=== PATIENT | female | born 1960 | race African-American/Black ===

== ENCOUNTER 2016-08-17 02:01 | Emergency (ER) | payer MEDICARE ==
[2016-08-17 02:11] VITALS: BP 133/72; PULSE 85; RESP 16; TEMP 98.4
[2016-08-17] MEDS ORDERED: PENICILLIN VK 500MG STARTER 4 TAB BTL PO STA (02:20)
--- NOTE | 2016-08-17 02:21 | ED ---
General Adult HPI - General Chief complaint: Dental/Oral Stated complaint: Jaw Pain Time Seen by Provider: 08/17/16 02:12 Source: patient, RN notes reviewed Mode of arrival: ambulatory Limitations: no limitations - History of Present Illness Initial comments: Patient a 56-year-old female who presents emergency room today with chief complaint of increased dental pain. She does admit to pain over the last tooth #30. She states that she's had this problem on and off over the last year. States last time that she was on antibiotics approximately a year ago. States been trying follow-up with the dentist is currently waiting for insurance to kick in which she believes she'll be able to get into a dentist next week. Patient denies any drainage or discharge or funny taste but does admit some swelling to the right side of the lower jaw. Denies any other complaints. Patient denies any recent fever, chills, shortness of breath, chest pain, back pain, abdominal pain, nausea or vomiting, numbness or tingling, dysuria or hematuria, constipation or diarrhea, headaches or visual changes, or any other complaints. - Related Data Home Medications Medication Instructions Recorded Confirmed HYDROcodone/APAP 10-325MG [[place] 1 tab PO Q4HR PRN 12/09/15 08/17/16 10-325] Previous Rx's Medication Instructions Recorded Penicillin V Potassium [Pen Vee K] 500 mg PO QID 10 Days 08/17/16 Allergies Allergy/AdvReac Type Severity Reaction Status Date / Time moxifloxacin HCl Allergy Anaphylaxis Verified 12/09/15 03:58 [From Avelox] Review of Systems ROS Statement: Those systems with pertinent positive or pertinent negative responses have been documented in the HPI. ROS Other: All systems not noted in ROS Statement are negative. Past Medical History Additional Past Medical History / Comment(s): CHRONIC BACK, ARITHRITIS KNEES History of Any Multi-Drug Resistant Organisms: None Reported Past Surgical History: Hysterectomy, Orthopedic Surgery Additional Past Surgical History / Comment(s): CYST, RIGHT KNEE, RIGHT SHOULDER , LEFT FOOT Past Psychological History: No Psychological Hx Reported Smoking Status: Current every day smoker Past Alcohol Use History: None Reported Past Drug Use History: None Reported General Exam - General Exam Comments Initial Comments: General: The patient is awake and alert, in no distress, and does not appear acutely ill. Eye: Pupils are equal, round and reactive to light, extra-ocular movements are intact. No nystagmus. There is normal conjunctiva bilaterally. No signs of icterus. Ears, nose, mouth and throat: There are moist mucous membranes and no oral lesions. Patient tender to palpation over the gumline of tooth #30 and 29. No obvious abscess for drainage. Uvula midline. Patient swallows without difficulty. Neck: The neck is supple, there is no tenderness or JVD. Cardiovascular: There is a regular rate and rhythm. No murmur, rub or gallop is appreciated. Respiratory: Lungs are clear to auscultation, respirations are non-labored, breath sounds are equal. No wheezes, stridor, rales, or rhonchi. Musculoskeletal: Normal ROM, no tenderness. Strength 5/5. Sensation intact. Pulses equal bilaterally 2+. Neurological: A&O x 3. CN II-XII intact, There are no obvious motor or sensory deficits. Coordination appears grossly intact. Speech is normal. Skin: Skin is warm and dry and no rashes or lesions are noted. Psychiatric: Cooperative, appropriate mood & affect, normal judgment. Limitations: no limitations Course Vital Signs 08/17/16 02:07 Temperature 98.4 F Pulse Rate 85 Respiratory 16 Rate Blood Pressure 133/72 O2 Sat by Pulse 96 Oximetry Medical Decision Making - Medical Decision Making Patient will be started on antibiotics penicillin cover for dental abscess. Advised follow-up with dentist in the next week. Advised return to emergency room if any symptoms increase or worsen or for any other concerns. Disposition Clinical Impression: Dental abscess Disposition: HOME SELF-CARE Condition: Good Instructions: Dental Abscess (ED) Additional Instructions: Please use antibiotic as prescribed and follow-up the dentist over the next week as discussed. Please return to emergency room if any symptoms increase or worsen or for any other concerns. Prescriptions: Penicillin V Potassium [Pen Vee K] 500 mg PO QID 10 Days Time of Disposition: 02:20
== END 2016-08-17 02:27 | disposition home or self-care (01) ==
LOC: EC 02:01
DX: K04.7 Periapical abscess without sinus (principal); Z88.1 Allergy status to other antibiotic agents; F17.200 Nicotine dependence, unspecified, uncomplicated
CPT/HCPCS: 99283

== ENCOUNTER 2019-07-16 00:10 | Emergency (ER) | payer MEDICARE ==
[2019-07-16 00:25] VITALS: RESP 18; TEMP 98.6
[2019-07-16] MEDS ORDERED: LIDOCAINE 1% INJ 10MG/ML (20 ML MDV) SQ ONE (02:09)
[2019-07-16] MEDS ORDERED: TOPICAL SKIN ADHESIVE 1 EACH AMP TOPICAL ONE (02:51)
[2019-07-16] MEDS ORDERED: GELATIN SPONGE,ABSORB (SMALL) 1 EACH SPONGE TOPICAL STA (03:00)
--- NOTE | 2019-07-16 03:20 | ED ---
Wound/Laceration HPI - General Chief Complaint: Wound/Laceration Stated Complaint: finger lac Time Seen by Provider: 07/16/19 01:54 Source: patient Mode of arrival: ambulatory Limitations: no limitations - History of Present Illness Initial Comments: 59-year-old female patient presents to the emergency department today for evaluation of laceration to the left middle finger. Patient states that she was cutting meat with a slicer when she accidentally cut her finger. States she immediately cleaned the area and apply bandages. This was around 12:00pm. Patient is unsure when her last tetanus vaccine was administered. She does not take any blood thinning medications. Denies any other injuries or concerns. Patient denies any headache, neck pain, back pain, chest pain, shortness of breath, dizziness, weakness, abdominal pain, nausea, vomiting, or difficulties with bowel movements or urination. - Related Data Home Medications Medication Instructions Recorded Confirmed HYDROcodone/APAP 10-325MG [[place] 1 tab PO Q4HR PRN 12/09/15 08/17/16 10-325] Previous Rx's Medication Instructions Recorded Penicillin V Potassium [Pen Vee K] 500 mg PO QID 10 Days day 08/17/16 Allergies Allergy/AdvReac Type Severity Reaction Status Date / Time moxifloxacin HCl Allergy Anaphylaxis Verified 07/16/19 00:25 [From Avelox] Review of Systems ROS Statement: Those systems with pertinent positive or pertinent negative responses have been documented in the HPI. ROS Other: All systems not noted in ROS Statement are negative. Past Medical History Past Medical History: Rheumatoid Arthritis (RA) Additional Past Medical History / Comment(s): CHRONIC BACK, ARITHRITIS KNEES History of Any Multi-Drug Resistant Organisms: None Reported Past Surgical History: Hysterectomy, Orthopedic Surgery Additional Past Surgical History / Comment(s): CYST, RIGHT KNEE, RIGHT SHOULDER, LEFT FOOT Past Psychological History: No Psychological Hx Reported Smoking Status: Current every day smoker Past Alcohol Use History: None Reported Past Drug Use History: None Reported General Exam Limitations: no limitations General appearance: alert, in no apparent distress, other (This is a well- developed, well-nourished adult female patient in no acute distress. Vital signs upon presentation are temperature 98.6F, pulse 77, respirations 18, blood pressure 138/85, pulse ox 99% on room air.) Respiratory exam: Present: normal lung sounds bilaterally. Absent: respiratory distress, wheezes, rales, rhonchi, stridor Cardiovascular Exam: Present: regular rate, normal rhythm, normal heart sounds. Absent: systolic murmur, diastolic murmur, rubs, gallop, clicks Extremities exam: Present: full ROM, normal capillary refill, other (There is a 1 cm x 2 cm skin avulsion noted to the palmar aspect of the left middle finger. Skin is otherwise pink, warm, dry. Cap refills less than 3 seconds. Radial pulses 2+ and equal bilaterally.). Absent: normal inspection, tenderness, pedal edema, joint swelling, calf tenderness Neurological exam: Present: alert, oriented X3, CN II-XII intact Psychiatric exam: Present: normal affect, normal mood Skin exam: Present: warm, dry, intact, normal color. Absent: rash Course Vital Signs 07/16/19 07/16/19 00:22 03:35 Temperature 98.6 F 98.6 F Pulse Rate 77 78 Respiratory 18 18 Rate Blood Pressure 138/85 124/78 O2 Sat by Pulse 99 100 Oximetry Procedures - Laceration Laceration #1 Site: hand (Left middle finger) Size (cm): 3 Description: avulsion Depth: simple, single layer Anesthetic Used: lidocaine 1% Anesthesia Technique: local infiltration Amount (mls): 3 Pre-repair: irrigated extensively Patient Tolerated Procedure: well, no complications Additional Comments: Applied pressure and Gelfoam, applied pressure dressing. No sutures required. Medical Decision Making - Medical Decision Making 89-year-old female patient presented to the emergency department today for evaluation of laceration to the left middle finger. Physical examination did reveal skin avulsion type injury to the palmar aspect of the distal middle finger. This was cleansed after that he can was injected. Apply Gelfoam and pressure. Dressing was applied. Patient tolerated procedure well. We updated her tetanus vaccine. She will be discharged to follow-up with the primary care physician for recheck in 1-2 days. Return parameters discussed in detail. She verbalizes understanding and agrees with this plan. Disposition Clinical Impression: Avulsion of skin of finger Disposition: HOME SELF-CARE Condition: Good Instructions (If sedation given, give patient instructions): Skin Avulsion (ED) Additional Instructions: Keep wound clean and dry. Apply pressure if bleeding restarts. Follow-up with your primary care physician for recheck in 1-2 days. Return to the emergency department immediately for any new, worsening, or concerning symptoms. Is patient prescribed a controlled substance at d/c from ED?: No Referrals: Robert Roberto MD [Primary Care Provider] - 1-2 days Time of Disposition: 03:20
[2019-07-16 03:37] VITALS: BP 124/78; PULSE 78
== END 2019-07-16 03:37 | disposition home or self-care (01) ==
LOC: EC 00:10
DX: S61.203A Unspecified open wound of left middle finger without damage to nail, initial encounter (principal); F17.200 Nicotine dependence, unspecified, uncomplicated; Z88.1 Allergy status to other antibiotic agents; W31.89XA Contact with other specified machinery, initial encounter
CPT/HCPCS: 99282; 12002; J2001